=== PATIENT | female | born 1965 | race Caucasian/White ===

== ENCOUNTER 2018-12-01 05:23 | Day surgery (SDC) | payer OTHER ==
[2018-11-21 10:01] VITALS: BMI 26.9
[2018-12-01] MEDS ORDERED: oxyCODONE HCL 5 MG TABLET PO PRN ×3 (14:31→15:49)
[2018-12-01] MEDS ORDERED: ONDANSETRON 4 MG/2 ML VIAL IVPUSH PRN ×2 (14:31→15:49)
[2018-12-01] MEDS ORDERED: LACTATED RINGERS SOLUTION 1,000 ML IV SCH ×2 (14:45→16:00)
[2018-12-01] MEDS ORDERED: PROPOFOL 20 ML ONE (15:43)
[2018-12-01] MEDS ORDERED: MIDAZOLAM HCL 2 MG/2 ML SINGLE DOSE VIAL ONE (15:43)
[2018-12-01] MEDS ORDERED: LIDOCAINE HCL/PF 2% SDV 5ML VIAL ONE (15:43)
[2018-12-01] MEDS ORDERED: PROMETHAZINE HCL 25 MG/1 ML VIAL IVPB PRN (15:49)
[2018-12-01] MEDS ORDERED: LIDOCAINE HCL 1%, 10 MG/ML (20ML VIAL) ONE (16:00)
[2018-12-01] MEDS ORDERED: LIDOCAINE HCL 1%, 10 MG/ML (20ML VIAL) INF ONE (16:12)
[2018-12-01 18:56] VITALS: BP 122/80; PULSE 70; TEMP 96.2
--- NOTE | 2018-12-01 20:08 | OP ---
DATE OF OPERATION: 12/01/2018 PREOPERATIVE DIAGNOSIS: Left breast mass. POSTOPERATIVE DIAGNOSIS: Left breast mass. PROCEDURE: Excision of left breast mass and axilla. SURGEON: Christie Lyman M.D. ANESTHESIA: Local, IV sedation. ESTIMATED BLOOD LOSS: Minimal. DRAINS: None. DISPOSITION: Stable at the end of procedure. INDICATION FOR PROCEDURE: Patient presented, had a history of reduction mammoplasty performed with a palpable mass that was bothering her in the upper outer left breast. Needle core biopsy showed however as it continues to bother her, we decided on an excision. The procedure was discussed with all the questions answered. PROCEDURE IN DETAIL: The patient was brought to [facility] and taken into the operating room, and after IV sedation, the left breast was prepped and draped in usual sterile fashion. The area in the upper outer left breast was anesthetized with 1% lidocaine without epinephrine. Periareolar incision was made in the upper outer left breast, and the mass was excised en bloc. This was sent to pathology for permanent section. Hemostasis was assured with electrocautery. The approximated with interrupted 2-0 Vicryl. Skin flaps were approximated interrupted 0 Vicryl, running 4-0 Prolene. Sterile dressing with Tegaderm, 4x4s applied. She tolerated procedure well, was taken to recovery in good condition. CHRISTIE LYMAN M.D. TANNER/[id number]
--- NOTE | 2018-12-06 15:32 | PATH ---
Surgical Pathology Report Patient Name: PHILLIP PECK [facility]. Rec. #: [id number] /Age/Gender: 1965 (Age: 53) / F Account: [id number] Location: [facility] SURGICAL Taken: 12/01/2018 Received: 12/04/2018 Reported: 12/06/2018 Physicians: Christie Miguel M.D. Specimen(s) Received LEFT BREAST MASS Clinical History Left breast mass, history of prior reduction mammoplasty, ? Fat necrosis Final Diagnosis LEFT BREAST MASS, EXCISION: BREAST TISSUE WITH FAT NECROSIS, MARKED CHRONIC INFLAMMATION AND HISTIOCYTIC REACTION. An addendum report to follow for AFB, PAS (fungal), and Gram stain results. Electronically Signed Prabhakar Rutherford M.D. Addendum Reported: 12/08/2018 Addendum Diagnosis Stains for PAS and AFB (block 5) are negative for organisms. Gram stain (block 5 and 7) is negative for bacilliin the cystic spaces. PAS and AFB were performed and interpreted at [facility]. Gram stain was performed at [place], [place] [id number] and interpreted at [facility]. Prabhakar Rutherford M.D. Gross Description Received in formalin labeled "left breast mass," is a 4.8 x 3.7 x 1.9 cm unoriented portion of fibroadipose tissue with a focal defect. There is no needle localization wire present. There is no skin or nipple present. The specimen is inked green and serially sectioned. Sectioning reveals fat necrosis and focal fibrous tissue. No definitive mass is identified. The specimen is entirely and sequentially submitted in 9 cassettes. Total formalin fixation time: Approximately 72 hours DL12/04/2018 saudi/12/04/2018
== END 2018-12-01 18:30 | disposition home or self-care (01) ==
LOC: JASU-SURG 05:23
PROVIDERS: ATTEND Surgery
PROC: 0HBU0ZX Excision of Left Breast, Open Approach, Diagnostic (ICD-10-PCS; principal; 2018-12-01 13:00)
DX: N60.22 Fibroadenosis of left breast (principal)
CPT/HCPCS: 84703; 88307-TC; 88312-TC; 94760

== ENCOUNTER 2022-10-05 04:16 | Day surgery (SDC) | payer MEDICARE, OTHER ==
[2022-10-01 13:29] VITALS: BMI 23.3
[2022-10-05] MEDS ORDERED: LIDOCAINE HCL/PF 1% SDV 5ML VIAL ONE (07:17)
[2022-10-05] MEDS ORDERED: BUPIVACAINE HCL/PF 0.5% (5MG/ML) 10 ML VIAL ONE (07:17)
[2022-10-05] MEDS ORDERED: ACETAMINOPHEN 500 MG TABLET (FP) PO PRN (09:06)
[2022-10-05] MEDS ORDERED: BUPIVACAINE HCL/PF 0.5% (5MG/ML) 10 ML VIAL IJ ONE (12:25)
[2022-10-05 12:53] VITALS: BP 124/81; PULSE 61; RESP 20; TEMP 97.7
== END 2022-10-05 13:50 | disposition home or self-care (01) ==
LOC: JASU-SURG 04:16
PROVIDERS: ATTEND Pain Medicine Pain Medicine
PROC: 3E0T33Z Introduction of Anti-inflammatory into Peripheral Nerves and Plexi, Percutaneous Approach (ICD-10-PCS; 2022-10-05)
PROC: 3E0T3BZ Introduction of Anesthetic Agent into Peripheral Nerves and Plexi, Percutaneous Approach (ICD-10-PCS; principal; 2022-10-05 13:15)
DX: M47.812 Spondylosis without myelopathy or radiculopathy, cervical region (principal)
CPT/HCPCS: 76000-TC-FY

== ENCOUNTER 2022-11-05 03:58 | Day surgery (SDC) | payer MEDICARE, OTHER ==
[2022-11-03 15:07] VITALS: BMI 23.3
[~2022-11-05 03:58] MED LIST: ACETAMINOPHEN 500 MG TABLET (FP) PO PRN; LIDOCAINE HCL 1%, 10 MG/ML (20ML VIAL) INF ONE
[2022-11-05] MEDS ORDERED: BUPIVACAINE HCL/PF 0.5% (5MG/ML) 10 ML VIAL ONE ×2 (07:28→12:21)
[2022-11-05] MEDS ORDERED: LIDOCAINE HCL/PF 1% SDV 5ML VIAL ONE (07:29)
[2022-11-05 09:27] VITALS: PULSE 72
[2022-11-05] MEDS ORDERED: BUPIVACAINE HCL/PF 0.5% (5 MG/ML) 30 ML VIAL IJ ONE ×2 (12:31)
[2022-11-05 12:57] VITALS: BP 138/86; RESP 20; TEMP 98.2
== END 2022-11-05 14:37 | disposition home or self-care (01) ==
LOC: JASU-SURG 03:58
PROVIDERS: ATTEND Pain Medicine Pain Medicine
PROC: 3E0T3BZ Introduction of Anesthetic Agent into Peripheral Nerves and Plexi, Percutaneous Approach (ICD-10-PCS; principal; 2022-11-05 11:15)
DX: M47.812 Spondylosis without myelopathy or radiculopathy, cervical region (principal)
CPT/HCPCS: 76000-TC-FY

== ENCOUNTER 2023-01-21 04:27 | Day surgery (SDC) | payer MEDICARE, OTHER ==
[2022-12-27 09:56] VITALS: BMI 23.3
[~2023-01-21 04:27] MED LIST changes: -LIDOCAINE HCL 1%, 10 MG/ML (20ML VIAL) INF ONE
[2023-01-21] MEDS ORDERED: LIDOCAINE HCL/PF 1% SDV 5ML VIAL ONE ×2 (08:15→13:14)
[2023-01-21] MEDS ORDERED: BUPIVACAINE HCL/PF 0.5% (5MG/ML) 10 ML VIAL ONE (08:15)
[2023-01-21] MEDS ORDERED: DEXAMETHASONE SOD PHOSPHATE 10 MG/1 ML VIAL ONE ×2 (08:15→13:14)
[2023-01-21] MEDS ORDERED: LIDOCAINE HCL/PF 2% SDV 5ML VIAL ONE (08:16)
[2023-01-21] MEDS ORDERED: LIDOCAINE HCL/PF 2% SDV 5ML VIAL INF ONE (13:36)
[2023-01-21] MEDS ORDERED: BUPIVACAINE HCL/PF 0.25% (2.5MG/ML) 10 ML VIAL IJ ONE (13:36)
[2023-01-21] MEDS ORDERED: DEXAMETHASONE SOD PHOSPHATE 10 MG/1 ML VIAL IVPUSH ONE (13:36)
[2023-01-21] MEDS ORDERED: LIDOCAINE HCL 1% PRESERVATIVE FREE - 30ML VIAL INF ONE (13:36)
[2023-01-21] MEDS ORDERED: BUPIVACAINE HCL/PF 0.5% (5 MG/ML) 30 ML VIAL IJ ONE (13:36)
[2023-01-21 14:34] VITALS: BP 144/92; PULSE 68; RESP 18; TEMP 97.1
[2023-01-21] MEDS ORDERED: ACETAMINOPHEN 500 MG TABLET (FP) PO PRN (17:41)
== END 2023-01-21 14:50 | disposition home or self-care (01) ==
LOC: JASU-SURG 04:27
PROVIDERS: ATTEND Pain Medicine Pain Medicine
PROC: 01513ZZ Destruction of Cervical Nerve, Percutaneous Approach (ICD-10-PCS; principal; 2023-01-21 14:00)
DX: M47.812 Spondylosis without myelopathy or radiculopathy, cervical region (principal)
CPT/HCPCS: 76000-TC-FY; J1100

== ENCOUNTER 2023-02-25 04:10 | Day surgery (SDC) | payer MEDICARE, OTHER ==
[2023-02-23 13:36] VITALS: BMI 24.1
[2023-02-25] MEDS ORDERED: BUPIVACAINE HCL/PF 0.75% 10 ML VIAL ONE (07:13)
[2023-02-25] MEDS ORDERED: LIDOCAINE HCL/PF 2% SDV 5ML VIAL ONE (07:13)
[2023-02-25] MEDS ORDERED: DEXAMETHASONE SOD PHOSPHATE 10 MG/1 ML VIAL ONE (07:14)
[2023-02-25] MEDS ORDERED: BUPIVACAINE HCL/PF 0.5% (5MG/ML) 10 ML VIAL ONE (09:15)
[2023-02-25] MEDS ORDERED: LIDO 2%/EPI 1:200000 PRESRVFRE (20 ML SDVIAL) INF ONE (09:23)
[2023-02-25] MEDS ORDERED: BUPIVACAINE HCL/PF 0.5% (5 MG/ML) 30 ML VIAL IJ ONE (09:23)
[2023-02-25] MEDS ORDERED: DEXAMETHASONE SOD PHOSPHATE 10 MG/1 ML VIAL IVPUSH ONE (09:23)
[2023-02-25] MEDS ORDERED: LIDOCAINE HCL 1% PRESERVATIVE FREE - 30ML VIAL IJ ONE (09:23)
[2023-02-25] MEDS ORDERED: ACETAMINOPHEN 500 MG TABLET (FP) PO PRN (09:32)
[2023-02-25 13:06] VITALS: BP 138/72; PULSE 68; RESP 17; TEMP 97.9
== END 2023-02-25 10:30 | disposition home or self-care (01) ==
LOC: JASU-SURG 04:10
PROVIDERS: ATTEND Pain Medicine Pain Medicine
PROC: 01513ZZ Destruction of Cervical Nerve, Percutaneous Approach (ICD-10-PCS; principal; 2023-02-25 09:30)
DX: M47.812 Spondylosis without myelopathy or radiculopathy, cervical region (principal)
CPT/HCPCS: 76000-TC-FY; J1100

== ENCOUNTER 2024-05-18 04:11 | Day surgery (SDC) | payer MEDICARE, OTHER ==
[2024-04-18 17:56] VITALS: BMI 25.7
[2024-05-18] MEDS ORDERED: ACETAMINOPHEN 500 MG TABLET (FP) PO PRN (10:06)
[2024-05-18 14:52] VITALS: RESP 18
[2024-05-18] MEDS: IOHEXOL 180 MG/1 ML ML IJ ONE (15:54)
[2024-05-18] MEDS: LIDOCAINE HCL 1% PRESERVATIVE FREE - 30ML VIAL IJ ONE (15:54)
[2024-05-18] MEDS: TRIAMCINOLONE ACET 40MG/1ML VIAL IJ ONE (15:55)
[2024-05-18] MEDS: BUPIVACAINE HCL/PF 0.5% (5MG/ML) 10 ML VIAL IJ ONE (15:55)
[2024-05-18 17:09] VITALS: BP 136/78; PULSE 68; TEMP 97.9
== END 2024-05-18 16:38 | disposition home or self-care (01) ==
LOC: JASU-SURG 04:11
PROVIDERS: ATTEND Pain Medicine Pain Medicine
PROC: 3E0U3BZ Introduction of Anesthetic Agent into Joints, Percutaneous Approach (ICD-10-PCS; 2024-05-18)
PROC: 3E0U33Z Introduction of Anti-inflammatory into Joints, Percutaneous Approach (ICD-10-PCS; principal; 2024-05-18 16:30)
DX: M53.3 Sacrococcygeal disorders, not elsewhere classified (principal)
CPT/HCPCS: 76000-TC-FY